=== PATIENT | female | born 1990 | race Caucasian/White ===

== ENCOUNTER 2016-11-24 11:36 | Emergency (ER) | payer OTHER ==
--- NOTE | 2016-11-24 15:19 | OBDCSUM ---
Datetime: 11/24/2016 13:08 Discharged to, Provider: Home Follow up at, Provider: [facility] Disch Instr Activity: Normal activity Disch Instr Diet: Regular Discharge Instructions, Provider: Routine instructions given Discharge Time: 11/24/2016 13:08 Follow up in weeks, Provider: per appt Discharge Diagnosis Prov Other: false labor
--- NOTE | 2016-11-24 15:20 | OBHP ---
Datetime: 11/24/2016 12:13 IP Adm Impression: Term, intrauterine IP Admit Plan: Observation/Evaluation Admit Comment, IP Provider: A 26 y/o F , 38wks GA, VINH: 12/06 comes to the ED c/o ctx and pain wh ich started at 2am. pain is 5/10 in severity now which decreased from 7/10, ctx 5 mins a part and slo wing down since last few hours. pt feels nauseated, denies vomiting, SOB, cheast pain or headache. - negative LOF/VB, + ctx and +FM PNI: no complications so far with this PNL: GBS+, No other abnormal labs so far, as per pt POBH: , previous hx of miscarriage at 10 wks and 6 wks PGYNH: none PMH: none PSH: none Med: PNV + iron All: none VS: 120/68, 68HR FHR: 150s 2 cm dilated, thick cervix, irregular ctx A: A 26 y/o F , VINH 12/06 comes to the ED c/o ctx and pain which started at 2am. pain is 5/10 in s everity now which decreased from 7/10, ctx 5 mins a part. P: Monitor VS Monitor FHR and ctx Patient given labor precautions Examined by Dr. Carreno case disccused with Dr. Carreno -Liya Cisse, PGY-[address] Carreno - I have evaluated the patient with the resident and I agree with the above. The patient is a @ 38.2 wks for rule out labor., contractions since copy messenger, no vagina l bleeding/leaking, +FM. VE=2/thick/high, TOCO= occasional contractions, [id number] mod francia, +accels, no decels. Patient does not appear to be in labor. Discharge home, labor precautions, pt to follow up i n the clinic Extremities - PN: Normal Abdomen - PN: Normal Lungs - PN: Normal Heart - PN: Normal Neurologic - PN: Normal General - PN: Normal FHR - Baseline A Provider: 150 Membranes, Provider: Intact Vital Signs Provider: Reviewed; Within Normal Limits IP Chief Complaint: Uterine contractions; Maternal discomfort NICHD Variability Prov Fetus A: Moderate 6-25bpm NICHD Accel Fetus A IP Provider: 10X10 FHR Category Provider Fetus A: Category I (Annotations: Data stored by CPN on behalf of user) NICHD Decel Fetus A IP Provider: None Dilatation, Provider: 2 Effacement, Provider: thick Station, Provider: high
[2016-11-24 17:59] VITALS: BP 120/71; PULSE 83; RESP 17; TEMP 98.1; O2SAT 97
== END 2016-11-24 13:15 | disposition home or self-care (01) ==
LOC: H.EROB2 11:36
DX: O47.1 False labor at or after 37 completed weeks of gestation (principal); Z3A.38 38 weeks gestation of pregnancy; O09.93 Supervision of high risk pregnancy, unspecified, third trimester

== ENCOUNTER 2016-11-27 23:01 | Inpatient (IN) | payer OTHER ==
[2016-11-27 23:33] VITALS: BMI 34.3
[2016-11-27] MEDS ORDERED: Lactated Ringer's 1,000 ML IV SCH ×2 (23:33→23:45)
[2016-11-27] MEDS ORDERED: Penicillin G Potassium 5 MU in Sodium Chloride 0.9% 50 ML IVPB ONE (23:37)
[2016-11-27] MEDS ORDERED: Lidocaine 1% Inj (20ml) ONE (23:49)
[2016-11-27] MEDS ORDERED: Penicillin G 5 Million Unit Vial IVPB ONE (23:49)
[2016-11-27] MEDS ORDERED: Oxytocin 30 units/LR 500ML 30 U/500 ML BAG IV ONE (23:49)
[2016-11-28] MEDS: Lactated Ringer's 1,000 ML IV SCH ×2 (00:15→05:04)
--- NOTE | 2016-11-28 00:16 | OBADHP ---
Datetime: 11/27/2016 23:46 Admit Comment, IP Provider: CC: "Contractions" HPI: 26 yo, female, , IUP @ 38.5 weeks by us and lmp. Patient presents to [facility] with contrac tions. per pt, contractions started this morning around 7AM, and initailly they were every 10-15 mins . Later in the afternoon they resolved but returned around 5PM every 5-7 mins and getting closer now. No complications during this so far. Pt is GBS +, good movement, no LOC, no VB. Den ies chest pain, dyspnea, headache, n/v. PAST OB HX: 2 x , 1 SAB and 1 ectopic pregnany. CARE and labs: GBS +, HIV neg, Hep B neg, GC neg PMH: Denies Surghx: Denies SOCIAL HISTORY: denies Smoking/Alcohol/Drugs FHx: Significant for DM and HTN, denies hx of cancer ALLERGIES: NKDA PHYSICAL EXAM Vital signs: stable General: NAD HEART: S1S2, no M/G/R Lungs: clear to ascultation b/l ABDOMEN: gravid, NT, BS+ EXt: minimal edema, NT Cervix: 5-6cm/75/-2 MONITOR: FHR 135, moderate variabillity, Catagory I ASSESSMENT/PLAN: 26 yo, female, , IUP @ 38.5 weeks by us and lmp. Patient presents to [facility] with contractions currently in active phase of labor. GBS + -Admit to Labor and Delivery -CBC/Type and Screen/RPR, Intravenous access, Monitoring, Monitor Labor progress, pain management, and care. -start penicillin -continue to monitor Pt seen and discussed with attending Dr. Bill Sotelo, PGY-I OB Hospitalist Addendum: Pt seen by me. Agree w/ above. 26 yo at 38+5 wks in labor, adm itted to L_D. FHT reassuring. GBS positive. Will start penicillin for GBS prohylaxis. (ES) Pelvic Type - PN: Adequate Extremities - PN: Normal Abdomen - PN: Normal Back - PN: Not Done Breast - PN: Not Done Lungs - PN: Normal Heart - PN: Normal Thyroid - PN: Not Done Neurologic - PN: Normal HEENT - PN: Normal General - PN: Normal Membranes, Provider: Intact Pool Provider: Negative Vital Signs Provider: Reviewed IP Chief Complaint: Uterine contractions Dilatation, Provider: 5-6 Effacement, Provider: 75 Station, Provider: -2 Genitourinary Exam: Normal DTRs - PN: Not Done EGA AdmitDate IP: 38.6 IP Adm Impression: Term, intrauterine IP Admit Plan: Admit to unit; Initiate labor protocol Datetime: 11/24/2016 12:13 FHR - Baseline A Provider: 150 NICHD Variability Prov Fetus A: Moderate 6-25bpm NICHD Accel Fetus A IP Provider: 10X10 FHR Category Provider Fetus A: Category I (Annotations: Data stored by CPN on behalf of user) NICHD Decel Fetus A IP Provider: None
[2016-11-28 00:27] LABS: BASO % 0.4 % (0.0-2.0); EOS % 0.2 % (0.0-4.0); HEMOGLOBIN 10.7 g/dL (12.0-16.0); LYMPH # 2.2 K/uL (1.0-4.3); MEAN CELL VOLUME 81.3 fl (81.0-99.0); MEAN PLATELET VOLUME 9.2 fl (7.2-11.7); MONO # 0.6 K/uL (0.0-0.8); MONO % 4.7 % (0.0-10.0); NEUT # 10.3 K/uL (1.8-7.0); NEUT % 77.7 % (50.0-75.0); RBC 4.11 Mil/uL (3.80-5.20); RED CELL DISTRIBUTION WIDTH 15.7 % (11.5-14.5); WHITE BLOOD COUNT 13.3 K/uL (4.8-10.8)
[2016-11-28] MEDS ORDERED: Lactated Ringer's 1,000 ML IV SCH (00:30)
[2016-11-28] MEDS ORDERED: Penicillin G Potassium 2 MU in Sodium Chloride 0.9% 50 ML IVPB SCH (04:00)
[2016-11-28] MEDS ORDERED: Fentanyl/Bupivacaine HCl 250 ML EPI ONE (05:02)
[2016-11-28] MEDS ORDERED: Bupivacaine HCl 0.25% PF (10 ml) Inj ONE (05:02)
[2016-11-28] MEDS ORDERED: Oxytocin 30 units/LR 500ML 30 U/500 ML BAG IV SCH (07:01)
[2016-11-28] MEDS ORDERED: Oxycodone/Acetaminophen 5/325 mg Tab PO PRN ×2 (07:01→09:46)
--- NOTE | 2016-11-28 07:11 | OBDS ---
DELIVERY PERSONNEL Delivery Doctor: Ulisses Khan MD Senior Procurement Manager: Raysa Almazan RN/Sulma Tipton RN Anesthesiologist: Javier Muñoz MD Resident: Pam Sotelo PGY1 MATERNAL INFORMATION Delivery Anesthesia: Epidural Medications in Delivery: Pitocin 30 units in 500 mls Maternal Complications: None Provider Comments: Pt progressed to complete. AROM of bag coming through vagina for clear fluid. P t pushed to deliver a viable female at 06:32 am. Apgars 9 and 9. Wt 2370gms, 5#3.2. placed on mother's abdomen. Cord clamped and cut. Cord blood collected. Placenta delivered spontane ously intact w/ a 3vc at 06:36am. Second degree tear repaired w/ 3-0v and 2-0 rapide. Rectum intact. Pt and baby tolerated the procedure well. EBL: 150mL LABOR SUMMARY EDC: 12/06/2016 00:00 No. Babies in Womb: 1 Attempted: No Labor Anesthesia: Epidural LABOR INFORMATION Onset of Labor: 11/28/2016 00:15 Complete Dilatation: 11/28/2016 06:26 Oxytocin: N/A Group B Beta Strep: Positive Antibiotics # of Doses: 2 Antibiotics Time of Last Dose: 0441 Steroids Given: None Reason Steroids Not Administered: Not Applicable MEMBRANES Membranes Rupture Method: Spontaneous Rupture of Membranes: 11/28/2016 06:31 Length of Rupture (hrs): 0.02 Amniotic Fluid Color: Clear Amniotic Fluid Amount: Moderate Amniotic Fluid Odor: Normal STAGES OF LABOR Stage 1 hrs: 6 Stage 1 min: 11 Stage 2 hrs: 0 Stage 2 min: 6 Stage 3 hrs: 0 Stage 3 min: 4 Total Time in Labor hrs: 6 Total Time in Labor min: 21 VAGINAL DELIVERY Episiotomy: None Laceration Repair Note: Second degree tear repaired w/ 3-0v and 2-0 rapide. Rectum intact. BABY A INFORMATION Infant Delivery Date/Time: 11/28/2016 06:32 Method of Delivery: Vaginal Born in Route : No : N/A Forceps: N/A Vacuum Extraction: N/A Shoulder Dystocia : No SHOULDER DYSTOCIA BABY A Infant Delivery Date/Time: 11/28/2016 06:32 PRESENTATION/POSITION BABY A Presentation: Cephalic Cephalic Presentation: Vertex Breech Presentation: N/A PLACENTA INFORMATION BABY A Placenta Delivery Time : 11/28/2016 06:36 Placenta Method of Delivery: Spontaneous Placenta Status: Delivered SCORES BABY A Heart Rate 1 min: >100 bpm Resp Effort 1 min: Good Cry Reflex Irritability 1 min: Cough or Sneeze or Pulls Away Muscle Tone 1 min: Active Motion Color 1 min: Body [place], Extremities Blue Resuscitation Effort 1 min: N/A SCORE 1 MIN: 9 Heart Rate 5 min: >100 bpm Resp Effort 5 min: Good Cry Reflex Irritability 5 min: Cough or Sneeze or Pulls Away Muscle Tone 5 min: Active Motion Color 5 min: Body [place], Extremities Blue Resuscitation Effort 5 min: N/A SCORE 5 MIN: 9 INFORMATION BABY A Gestational Age at Delivery: 38.6 Gestational Status: Term Outcome : Liveborn Condition : Stable Sex: Female IDENTIFICATION/MEDS BABY A ID Band Number: [id number] WEIGHT/LENGTH BABY A Birthweight (gms): 2370 Infant Weight (lb): 5 Infant Weight (oz): 4 CORD INFORMATION BABY A No. Cord Vessels: 3 Nuchal Cord : N/A Cord Blood Taken: Yes Infant Suction: Mouth; Nose
--- NOTE | 2016-11-28 07:14 | OBDS ---
DELIVERY PERSONNEL Delivery Doctor: Ulisses Khan MD Geophysical Prospecting Surveyor: Raysa Almazan RN/Sulma Tipton RN Anesthesiologist: Javier Muñoz MD Resident: Pam Sotelo PGY1 MATERNAL INFORMATION Delivery Anesthesia: Epidural Medications in Delivery: Pitocin 30 units in 500 mls Maternal Complications: None Provider Comments: Pt progressed to complete. AROM of bag coming through vagina for clear fluid. P t pushed to deliver a viable female at 06:32 am. Nuchal cord x1 easily reduced. Apgars 9 an d 9. Wt 2370gms, 5#3.2. Infant placed on mother's abdomen. Cord clamped and cut. Cord blood collec uma. Placenta delivered spontaneously intact w/ a 3vc at 06:36am. Second degree tear repaired w/ 3-0 v and 2-0 rapide. Rectum intact. Pt and baby tolerated the procedure well. EBL: 150mL LABOR SUMMARY EDC: 12/06/2016 00:00 No. Babies in Womb: 1 Attempted: No Labor Anesthesia: Epidural LABOR INFORMATION Onset of Labor: 11/28/2016 00:15 Complete Dilatation: 11/28/2016 06:26 Oxytocin: N/A Group B Beta Strep: Positive Group B Beta Strep: Positive Antibiotics # of Doses: 2 Antibiotics Time of Last Dose: 0441 Steroids Given: None Reason Steroids Not Administered: Not Applicable MEMBRANES Membranes Rupture Method: Spontaneous Rupture of Membranes: 11/28/2016 06:31 Length of Rupture (hrs): 0.02 Amniotic Fluid Color: Clear Amniotic Fluid Amount: Moderate Amniotic Fluid Odor: Normal STAGES OF LABOR Stage 1 hrs: 6 Stage 1 min: 11 Stage 2 hrs: 0 Stage 2 min: 6 Stage 3 hrs: 0 Stage 3 min: 4 Total Time in Labor hrs: 6 Total Time in Labor min: 21 VAGINAL DELIVERY Episiotomy: None Laceration Repair Note: Second degree tear repaired w/ 3-0v and 2-0 rapide. Rectum intact. BABY A INFORMATION Infant Delivery Date/Time: 11/28/2016 06:32 Method of Delivery: Vaginal Born in Route : No : N/A Forceps: N/A Vacuum Extraction: N/A Shoulder Dystocia : No SHOULDER DYSTOCIA BABY A Delivery Date/Time: 11/28/2016 06:32 PRESENTATION/POSITION BABY A Presentation: Cephalic Cephalic Presentation: Vertex Breech Presentation: N/A PLACENTA INFORMATION BABY A Placenta Delivery Time : 11/28/2016 06:36 Placenta Method of Delivery: Spontaneous Placenta Status: Delivered SCORES BABY A Heart Rate 1 min: >100 bpm Resp Effort 1 min: Good Cry Reflex Irritability 1 min: Cough or Sneeze or Pulls Away Muscle Tone 1 min: Active Motion Color 1 min: Body [place], Extremities Blue Resuscitation Effort 1 min: N/A SCORE 1 MIN: 9 Heart Rate 5 min: >100 bpm Resp Effort 5 min: Good Cry Reflex Irritability 5 min: Cough or Sneeze or Pulls Away Muscle Tone 5 min: Active Motion Color 5 min: Body [place], Extremities Blue Resuscitation Effort 5 min: N/A SCORE 5 MIN: 9 INFANT INFORMATION BABY A Gestational Age at Delivery: 38.6 Gestational Status: Term Outcome : Liveborn Infant Condition : Stable Sex: Female IDENTIFICATION/MEDS BABY A ID Band Number: [id number] WEIGHT/LENGTH BABY A Birthweight (gms): 2370 Weight (lb): 5 Weight (oz): 4 CORD INFORMATION BABY A No. Cord Vessels: 3 Nuchal Cord : N/A Cord Blood Taken: Yes Infant Suction: Mouth; Nose
[2016-11-29 08:39] LABS: HEMOGLOBIN 9.3 g/dL (12.0-16.0); MEAN CELL VOLUME 82.4 fl (81.0-99.0); MEAN CORPUSCULAR HEMOGLOBIN 26.3 pg (27.0-31.0); RBC 3.53 Mil/uL (3.80-5.20); RED CELL DISTRIBUTION WIDTH 15.6 % (11.5-14.5); WHITE BLOOD COUNT 11.3 K/uL (4.8-10.8)
--- NOTE | 2016-11-29 09:43 | OBPPN ---
Datetime: 11/29/2016 06:54 PP Pain Prov: Within normal limits PP Nausea Prov: Denies PP Flatus Prov: Yes PP BM Prov: No PP Breasts Prov: Not Done PP Heart Prov: Normal PP Lungs Prov: Normal PP Abdomen/Uterus Prov: Normal PP Lochia Prov: Normal PP Vulva/Perineum Prov: Normal PP CVA Tenderness Prov: Normal PP Extremities Prov: Normal PP C/S Incision Prov: Not Applicable PP Progress Prov: Normal PP Impression Prov: Normal progression PP Plan Prov: Continue present management PP Progress Note Prov: S: 26 YO s/p NVD on 11/28/16 @6:32. Pt delivered a baby girl and had a 2nd degree lac repaired. Pt is seen and examined in the AM, by bedside. No overnight events . Endorses minimal abdominal and back pain without any medication. Pt informed about pain medications that are available to her. Patient is ambulating, breast feeding baby, tolerating diet. Lochia is mi nimal, spotting, and pt is voiding freely. Denies n/v, fever, chills, chest pain, dyspnea, dizziness, headache. + Flatus and no BM. PE: VS stable Gen: NAD CV: S1S2 no murmurs PUL: clear breath sounds b/l, no wheezing, no crackles Abdomen: BS+, NT, Uterus is firm Ext: minimal pedal edema, NT A/P 26 YO s/p NVD on 11/28/16 @6:32. VS is stable, pt is afebrile, tolerating pain, PO diet, am bulating and doing well. SCDs for DVT prophylaxis, ambulating Motrin 600mg, and Percocet 5/325mg for pain as needed Colace 100mg PO for constipation Ferrous sulfate 325mg PO Follow up AM cbc pt is encouraged to continue and ambulate care will continue Anticipated discharge tomorrow, 11/30/16 [facility] PGY-I OBH ADDENDUM: pt seen _ examined by me. agree with above assessment and plan. IP PP Procedures: None Vital Signs Provider PP: Reviewed
[2016-11-29] MEDS ORDERED: Benzocaine/Menthol SPRAY ONE (20:10)
[2016-11-30] MEDS ORDERED: Measles, Mumps, and Rubella 0.5 ML VIAL SC ONE (08:25)
--- NOTE | 2016-11-30 11:34 | OBPPN ---
Datetime: 11/30/2016 10:42 PP Pain Prov: Within normal limits PP Nausea Prov: Denies PP Flatus Prov: Yes PP BM Prov: Yes PP Breasts Prov: Normal PP Heart Prov: Normal PP Lungs Prov: Normal PP Abdomen/Uterus Prov: Normal PP Lochia Prov: Normal PP Vulva/Perineum Prov: Normal PP CVA Tenderness Prov: Normal PP Extremities Prov: Normal PP C/S Incision Prov: Not Applicable PP Progress Prov: Normal PP Comments Phys Exam Prov: abd: fundus firm at level of umbilicus. +BS, soft, minor tenderness, ND. No G/R. PP Impression Prov: Normal progression PP Plan Prov: Continue present management; Discharge PP Progress Note Prov: pt seen and examined at bedside this morning. No overnight events. Mild abdom inal and back pain controlled with Ibuprofen. Patient is ambulating, breast feeding baby, tolerating diet. Lochia is minimal, spotting, and pt is voiding freely. Denies n/v, fever, chills, chest pain, d yspnea, dizziness, headache. + Flatus/+BM. PE: as above A/P:26 y/o s/p on 11/28/16 @6:32am, afebrile, doing well on PPD#2. c/w current management dc today Neo Rod MD PGY2 @ 10:45am Addendum by Dr. Carreno: Patient evaluated and I agree with the above. Patient PPD#2, for discharge, discharge instructions reviewed IP PP Procedures: None Vital Signs Provider PP: Reviewed; Within Normal Limits
--- NOTE | 2016-11-30 11:34 | OBDCSUM ---
Datetime: 11/30/2016 10:47 Discharged to, Provider: Home Follow up at, Provider: [facility] Disch Instr Activity: Normal activity; May be up to bathroom; May be up for meals; May Shower Disch Instr Diet: Regular Discharge Instructions, Provider: Routine instructions given Discharge Diagnosis, Provider: Term Delivered Discharge Time: 11/30/2016 11:00 Follow up in weeks, Provider: 5 to 6 weeks Disch Referrals: None Contraception discussed, Prov: Yes Disch Activity Restrictions: No lifting; No sexual activity; Nothing in vagina - [place], tampon s, douche Contraception after Delivery: Undecided Datetime: 11/24/2016 13:08 Follow up at, Provider: [facility] Disch Instr Activity: Normal activity; May be up to bathroom; May be up for meals; May Shower Follow up in weeks, Provider: in 5 to 6 weeks Disch Referrals: None Disch Activity Restrictions: No lifting; No sexual activity; Nothing in vagina - [place], tampon s, douche
[2016-11-30 18:11] VITALS: BP 122/79; PULSE 85; RESP 20; TEMP 98.2; O2SAT 98
== END 2016-11-30 12:35 | disposition home or self-care (01) | DRG 373 ==
LOC: H.EROB2 23:01 → H.L&D 23:33 → H.OB/GYN 11-28 09:30
PROVIDERS: ADMIT Obstetrics & Gynecology; ATTEND Obstetrics & Gynecology
PROC: 4A1HXCZ Monitoring of Products of Conception, Cardiac Rate, External Approach (ICD-10-PCS; 2016-11-27)
PROC: 10E0XZZ Delivery of Products of Conception, External Approach (ICD-10-PCS; principal; 2016-11-28)
PROC: 0KQM0ZZ Repair Perineum Muscle, Open Approach (ICD-10-PCS; 2016-11-28)
DX: O99.824 Streptococcus B carrier state complicating childbirth (principal); K59.00 Constipation, unspecified; Z37.0 Single live birth; Z84.3 Family history of consanguinity; O69.81X0 Labor and delivery complicated by cord around neck, without compression, not applicable or unspecified; O70.1 Second degree perineal laceration during delivery; Z3A.38 38 weeks gestation of pregnancy